=== PATIENT | female | born 1950 | race Caucasian/White ===

== ENCOUNTER 2017-07-08 07:15 | Day surgery (SDC) | payer OTHER ==
[2017-07-08] MEDS ORDERED: D5 LR 1000 ML 1,000 ML IV ONE (07:29)
[2017-07-08] MEDS ORDERED: DIPRIVAN VIAL 20 ML ONE (09:26)
[2017-07-08 10:40] VITALS: BP 121/65
== END 2017-07-08 10:10 | disposition home or self-care (01) ==
LOC: SURG1 07:15
PROVIDERS: ATTEND Internal Medicine Gastroenterology
PROC: 0DJD8ZZ Inspection of Lower Intestinal Tract, Via Natural or Artificial Opening Endoscopic (ICD-10-PCS; principal; 2017-07-08 08:15)
DX: K57.30 Diverticulosis of large intestine without perforation or abscess without bleeding (principal); K64.0 First degree hemorrhoids; Z86.010 Personal history of colon polyps
CPT/HCPCS: A4217; J3490; J7120